=== PATIENT | male | born 1995 | race Caucasian/White ===

== ENCOUNTER 2019-02-12 14:09 | Emergency (ER) | payer BC, OTHER ==
[~2019-02-12] VITALS: Ht 182.9 cm; Wt 80.9 kg
[2019-02-12 14:11] VITALS: BP 113/62
== END 2019-02-12 15:20 | disposition home or self-care (01) ==
LOC: ED 15:07
DX: L20.84 Intrinsic (allergic) eczema (principal); N50.9 Disorder of male genital organs, unspecified
CPT/HCPCS: 99283